=== PATIENT | female | born 1960 | race Caucasian/White ===

== ENCOUNTER 2017-03-08 11:00 | Emergency (ER) | payer BC ==
[~2017-03-08] VITALS: Ht 167.6 cm; Wt 65.0 kg
[~2017-03-08 11:00] MED LIST: CLON.2 PO; LISI-360 PO
[2017-03-08 11:02] VITALS: BP 177/86; PULSE 69; RESP 18; TEMP 98.2; O2SAT 99
[2017-03-08] MEDS ORDERED: ASPIRIN 325 MG TAB PO ONE (11:30)
[2017-03-08 11:33] VITALS: BP_SYST 180; BP_SYST 191; BP_DIAS 92; BP_DIAS 97; PULSE 69; O2SAT 100
[2017-03-08] MEDS ORDERED: CLON0.2T PO (11:39)
[2017-03-08 11:46] LABS: AUTOMATED NEUTROPHIL # 3.4 TH/MM3 (1.8-7.7); BASOPHIL % 0.6 % (0.0-2.0); EOSINOPHIL # 0.1 TH/MM3 (0-0.4); EOSINOPHIL % 1.7 % (0.0-4.0); HEMATOCRIT 40.4 % (35.0-46.0); HEMO FLAGS DIFF FINAL; LYMPH % 34.9 % (9.0-44.0); LYMPHOCYTE # 2.3 TH/MM3 (1.0-4.8); MEAN CELL VOLUME 92.3 FL (80.0-100.0); MEAN CORPUSCULAR HGB CONC 34.7 % (32.0-36.0); MONO % 10.5 % (0.0-8.0); NEUT % 52.3 % (16.0-70.0); PLATELET COUNT 290 TH/MM3 (150-450); RED BLOOD COUNT 4.38 MIL/MM3 (4.00-5.30); RED CELL DISTRIBUTION WIDTH 12.4 % (11.6-17.2); WHITE BLOOD COUNT 6.6 TH/MM3 (4.0-11.0)
--- NOTE | 2017-03-08 11:55 | RADRPT ---
EXAM DATE/TIME: 03/08/2017 11:22 [place] COMPARISON: No previous studies available for comparison. INDICATIONS : Chest pain. MEDICAL HISTORY : None. SURGICAL HISTORY : None. ENCOUNTER: Initial ACUITY: 4 - 6 days PAIN SCORE: 7/10 LOCATION: Left lower chest FINDINGS: A single view of the chest demonstrates the lungs to be symmetrically aerated without evidence of mas s, infiltrate or effusion. The cardiomediastinal contours are unremarkable. Osseous structures are intact. CONCLUSION: No acute disease. Gen Rubalcava MD on March 08, 2017 at 11:53 Board Certified Radiologist. This report was verified electronically.
[2017-03-08 12:04] LABS: INTERNATIONAL NORMALIZED RATIO 0.9 RATIO; PROTHROMBIN TIME - PATIENT 10.4 SEC (9.8-11.6)
[2017-03-08 12:11] LABS: ANION GAP 4 MEQ/L (5-15); BICARBONATE 31.7 MEQ/L (21.0-32.0); BLOOD UREA NITROGEN 27 MG/DL (7-18); CHLORIDE 103 MEQ/L (98-107); GLOMERULAR FILTRATION RATE 72 ML/MIN (>89); MAGNESIUM 2.2 MG/DL (1.5-2.5); POTASSIUM 3.9 MEQ/L (3.5-5.1); SODIUM (NA) 139 MEQ/L (136-145)
--- NOTE | 2017-03-08 12:12 | PD ---
HPI Chief Complaint: Chest Pain Time Seen by Provider: 12:04 Travel History International Travel<30 days: No Contact w/Intl Traveler<30days: No Traveled to known affect area: No History of Present Illness HPI 56 yo female here for evaluation of left sided chest pain on/off for 4 weeks. The patient she's never had anything like this before. Per patient and gets worse with deep breaths. The patient is sharp and 6 out of 10. She denies any injury. She is any fevers chills or sweats. She does state that she has a mild cough. She has any heart history in herself. She does have a family history of heart disease in the grandparents as well as history of high blood pressure herself. No history of smoking or diabetes. Takes no medications at this time other than clonidine on occasion. States that the pain has progressively gotten worse this is what brought her here. She has not seen anybody for this. Per patient [place] but states she had the pain before she went there. She denies taking an estrogen products. She states the cough is nonproductive and is minimal. She has an allergy to Demerol and Percodan. She's not taking anything for this. Pain does not radiate. No abdominal pain. No urinary or bowel movement issues. PFSH Past Medical History Cardiovascular Problems: Yes (HTN ) Hypertension: Yes Past Surgical History Section: Yes Hysterectomy: Yes Social History Alcohol Use: No Tobacco Use: No Substance Use: No Allergies-Medications (Allergen,Severity, Reaction): Coded Allergies: Percodan (Verified Allergy, Severe, RASH,ITCHING, 03/08/17) Demerol (Verified Adverse Reaction, Unknown, Confusion, 03/08/17) Reported Meds & Prescriptions Reported Meds & Active Scripts Active Reported Clonidine (Clonidine HCl) 0.2 Mg Tab 0.2 Mg PO DAILY Review of Systems Except as stated in HPI: all other systems reviewed are Neg Physical Exam Narrative GENERAL: SKIN: Warm and dry. HEAD: Atraumatic. Normocephalic. EYES: Pupils equal and round. No scleral icterus. No injection or drainage. ENT: No nasal bleeding or discharge. Mucous membranes pink and moist. Tongue is midline. No uvula deviation. NECK: Trachea midline. No JVD. CARDIOVASCULAR: Regular rate and rhythm. No murmurs, S3, S4. Chest pain is somewhat reproducible with touch specially underneath the left breast but not the one on the mid sternum. Pain does reproduce with deep breaths. RESPIRATORY: No accessory muscle use. Clear to auscultation. Breath sounds equal bilaterally. GASTROINTESTINAL: Abdomen soft, non-tender, nondistended. Hepatic and splenic margins not palpable. MUSCULOSKELETAL: Extremities without clubbing, cyanosis, or edema. No obvious deformities. Full range of motion of the upper and lower extremities bilaterally. 2+ pulses bilaterally. NEUROLOGICAL: Awake and alert. No obvious cranial nerve deficits. Motor grossly within normal limits. Five out of 5 muscle strength in the arms and legs. Normal speech. PSYCHIATRIC: Appropriate mood and affect; insight and judgment normal. Data Data Last Documented VS Vital Signs Date Time Temp Pulse Resp B/P Pulse Ox O2 Delivery O2 Flow Rate FiO2 03/08/17 11:33 69 191/97 180/92 03/08/17 11:33 100 Room Air 03/08/17 11:02 98.2 18 Orders Electrocardiogram (03/08/17 ) Electrocardiogram (03/08/17 11:24) Basic Metabolic Panel (Bmp) (03/08/17 11:24) Ckmb (Isoenzyme) Profile (03/08/17 11:24) Complete Blood Count With Diff (03/08/17:) D-Dimer (03/08/17:24) Magnesium (Mg) (03/08/17 11:24) Prothrombin Time / Inr (Pt) (03/08/17 11:24) Act Partial Throm Time (Ptt) (03/08/17 11:24) Troponin I (03/08/17 11:24) Chest, Single Ap (03/08/17:24) Ecg Monitoring (03/08/17 11:24) Bilateral Bp Monitoring (03/08/17 11:24) Iv Access Insert/Monitor (03/08/17:24) Oximetry (03/08/17:24) Oxygen Administration (03/08/17:24) Aspirin (Aspirin) (03/08/17 11:30) CKMB (03/08/17:30) CKMB% (03/08/17 11:30) Labs Laboratory Tests Test 03/08/17:30 White Blood Count 6.6 TH/MM3 Red Blood Count 4.38 MIL/MM3 Hemoglobin 14.0 GM/DL Hematocrit 40.4 % Mean Corpuscular Volume 92.3 FL Mean Corpuscular Hemoglobin 32.0 PG Mean Corpuscular Hemoglobin 34.7 % Concent Red Cell Distribution Width 12.4 % Platelet Count 290 TH/MM3 Mean Platelet Volume 9.0 FL Neutrophils (%) (Auto) 52.3 % Lymphocytes (%) (Auto) 34.9 % Monocytes (%) (Auto) 10.5 % Eosinophils (%) (Auto) 1.7 % Basophils (%) (Auto) 0.6 % Neutrophils # (Auto) 3.4 TH/MM3 Lymphocytes # (Auto) 2.3 TH/MM3 Monocytes # (Auto) 0.7 TH/MM3 Eosinophils # (Auto) 0.1 TH/MM3 Basophils # (Auto) 0.0 TH/MM3 CBC Comment DIFF FINAL Differential Comment Prothrombin Time 10.4 SEC Prothromb Time International 0.9 RATIO Ratio Activated Partial 29.0 SEC Thromboplast Time D-Dimer Quantitative (PE/DVT) 0.26 MG/L FEU Sodium Level 139 MEQ/L Potassium Level 3.9 MEQ/L Chloride Level 103 MEQ/L Carbon Dioxide Level 31.7 MEQ/L Anion Gap 4 MEQ/L Blood Urea Nitrogen 27 MG/DL Creatinine 0.82 MG/DL Estimat Glomerular Filtration 72 ML/MIN Rate Random Glucose 92 MG/DL Calcium Level 9.5 MG/DL Magnesium Level 2.2 MG/DL Total Creatine Kinase 628 U/L Creatine Kinase MB 15.1 NG/ML Creatine Kinase MB % 2.4 % Troponin I LESS THAN 0.02 NG/ML MDM Medical Decision Making Medical Screen Exam Complete: Yes Emergency Medical Condition: Yes Medical Record Reviewed: Yes Interpretation(s) EKG shows sinus rhythm with no sign of acute ischemia or arrhytmia read by me and attending. CBC Diagram 03/08/17 11:30 Differential Diagnosis Chest pain versus a typical chest pain versus cardiac chest pain versus ACS versus pleurisy versus pneumonia versus less likely but still possible PE Narrative Course 56-year-old female that presents to the ED for evaluation of chest pain. Patient was properly examined and was found to have signs and symptoms very consistent what appears to be left-sided chest pain. Patient unfortunately does have risk factors including hypertension and age as well as family history. her symptoms are atypical and correlate more with pleurisy but cannot rule out ACS. Therefore labs and imaging ordered. Aspirin given as well. Labs and imaging shows no sign of acute disease. D-dimer negative as well. Less likely PE. Case was discussed in my attending Dr. Moran who was made aware of all findings as well as physical exam and patient's description of the pain and we both agree that this is likely not cardiac. She's had it for 4 weeks and only gets worse with deep breaths which is more consistent with pleurisy. Reproducible with deep breaths as well as with touch. At this time I recommend trial of anti-inflammatories and follow-up outpatient. Patient is in agreement with this plan. Close follow-up with PCP recommended. See ED for worsening symptoms. Diagnosis Primary Impression: Atypical chest pain Additional Impression: Pleurisy Patient Instructions: General Instructions Additional Instructions: Take medication as prescribed. Follow with your doctor this week. See ED for any worsening symptoms, especially if the pain changes or you are having more symptoms with the pain Med/Other Pt SpecificInfo: Prescription(s) given Scripts Diclofenac Sodium DR 75 Mg Tabdr75 Mg PO BID PRN (PAIN SCALE 1 TO 10) #20 TAB Prov:Todd Moran MD 03/08/17 Disposition: 01 DISCHARGE HOME Condition: Stable Abdulaziz Elam Mar 08, 2017 12:12
[2017-03-08 12:14] LABS: CREATINE KINASE 628 U/L (26-192)
[2017-03-08 12:26] LABS: CKMB 15.1 NG/ML (0.5-3.6)
[2017-03-08] MEDS ORDERED: DICL75TA PO (12:53)
--- NOTE | 2017-03-08 18:18 | EKG ---
Date Performed: 03/08/2017 Time Performed: 11:18:12 PTAGE: 56 years EKG: Sinus rhythm BORDERLINE LEFT AXIS DEVIATION INCOMPLETE RIGHT BUNDLE BRANCH BLOCK BORDERLINE ECG NO PREVIOUS TRACING DOCTOR: Ziggy Snow Interpretating Date/Time 03/08/2017 18:16:58
== END 2017-03-08 13:59 | disposition home or self-care (01) ==
LOC: NEPC 11:00
DX: R07.89 Other chest pain (principal); R09.1 Pleurisy; I10 Essential (primary) hypertension; Z79.899 Other long term (current) drug therapy
CPT/HCPCS: 71010; 80048; 82550; 82552; 83735; 84484; 85025; 85379; 85610; 85730; 93005; 99285